=== PATIENT | female | born 1985 | race Caucasian/White ===

== ENCOUNTER 2018-06-30 07:38 | Inpatient (IN) | payer OTHER ==
[2018-07-01] MEDS ORDERED: Promethazine HCl 25 MG/ML VIAL IM PRN ×2 (02:26→13:16)
[2018-07-01] MEDS ORDERED: Butorphanol Tartrate 1 MG/ML VIAL SLOW IVP PRN (02:26)
[2018-07-01] MEDS ORDERED: HYDROcodone/Acetaminophen 5/325 mg Tablet PO PRN ×2 (02:26)
[2018-07-01] MEDS ORDERED: NS / Oxytocin 40 units/1000ml 1,000 ML IV PRN (02:26)
[2018-07-01] MEDS ORDERED: Lidocaine 1% (PF) 30 ML VIAL SC PRN (02:26)
[2018-07-01] MEDS ORDERED: Ibuprofen 800 MG TAB PO PRN (02:26)
[2018-07-01] MEDS ORDERED: Ondansetron PF 4 MG/2 ML Vial IVP PRN ×3 (02:26→22:13)
[2018-07-01] MEDS ORDERED: Docusate 100 MG CAP PO PRN (02:26)
[2018-07-01 05:49] VITALS: BMI 30.1
[2018-07-01 07:11] LABS: Hemoglobin 12.1 g/dL (12.0-16.0); Mean Corpuscular Hemoglobin 31.6 pg (27.0-31.0); Mean Platelet Volume 10.6 fL (7.4-10.4); Platelet Count 144 thou/uL (130-400); RBC Distribution Width 13.4 % (11.5-14.5); Red Blood Cell (RBC) Count 3.81 mill/uL (4.20-5.40); White Blood Cell (WBC) Count 9.9 thou/uL (4.8-10.8)
[2018-07-01 07:28] LABS: ALT (SGPT) 10 U/L (8-55); AST (SGOT) 11 U/L (5-34); Albumin 3.4 g/dL (3.5-5.0); Alkaline Phosphatase 165 U/L (40-150); Anion Gap 15 mmol/L (10-20); BUN (Urea Nitrogen) 8 mg/dL (7.0-18.7); Bilirubin, Total 0.2 mg/dL (0.2-1.2); Calc. Creatinine Clearance 142 mL/min (70-130); Calcium 8.8 mg/dL (7.8-10.44); Carbon Dioxide 19 mmol/L (22-29); Chloride 107 mmol/L (98-107); Estimated GFR-MDRD Greater than 90; Globulin 2.9 g/dL (2.4-3.5); Glucose 76 mg/dL (70-105); Potassium 3.7 mmol/L (3.5-5.1); Protein, Total 6.3 g/dL (6.0-8.3); Sodium 137 mmol/L (136-145)
[2018-07-01] MEDS: NS w/ Oxytocin 10 units 500 ML IV SCH ×2 (07:34→21:03)
[2018-07-01 07:52] LABS: HBSAg Index 0.19 S/CO (0-0.99); Hep B Surf Ag Non-Reactive S/CO (NonReactive)
[2018-07-01 07:53] LABS: Syphilis Antibody Nonreactive (Nonreactive); Syphilis Antibody Index 0.03 S/CO (<1.00 Non-Reactive)
[2018-07-01] MEDS ORDERED: Bupivacaine/Epinephrine 0.25% 30 ML VIAL ONE (11:11)
[2018-07-01] MEDS ORDERED: Fentanyl 4 mcg/Bup 0.1% Cadd 100 ML ONE ×2 (12:42→19:00)
[2018-07-01] MEDS ORDERED: Lidocaine 1.5% w/Epi 1:200K 30 ML VIAL (Epid Use) ONE (12:44)
[2018-07-01] MEDS: Lactated Ringer's 1,000 ML IV SCH ×3 (13:15→21:04)
[2018-07-01] MEDS ORDERED: ePHEDrine/0.9% NaCl/PF SYRINGE 50 mg/10 ml SLOW IVP PRN (13:16)
[2018-07-01] MEDS ORDERED: Eucerin (Mineral Oil/Petrolatum,White) 30 gm Jar TOP PRN (13:16)
[2018-07-01] MEDS ORDERED: Lactated Ringer's 500 ML IV PRN (13:16)
[2018-07-01] MEDS ORDERED: diphenhydrAMINE 50 MG/ML VIAL IVP PRN (13:16)
[2018-07-01] MEDS ORDERED: Acetaminophen 325 MG TAB PO PRN (13:16)
[2018-07-01] MEDS ORDERED: Naloxone HCl 0.4 mg/ml Vial IVP PRN ×2 (13:16)
[2018-07-01] MEDS ORDERED: Fentanyl 4 mcg/Bupivacaine 0.1% Cassette 100 ML EPIDURAL SCH (13:30)
[2018-07-01] MEDS ORDERED: Communication Order-Pharmacy FS SCH (13:30)
[2018-07-01] MEDS ORDERED: Adacel (T-DAP) 0.5 ML SYRINGE IM ONE (22:13)
[2018-07-01] MEDS ORDERED: Lanolin Ointment 7 GM TUBE TOP PRN (22:13)
[2018-07-01] MEDS ORDERED: Benzocaine/Menthol 20-0.5% 60 ML CAN TOP PRN (22:13)
[2018-07-01] MEDS ORDERED: Milk Of Magnesia 30 ML UDCUP PO PRN (22:13)
[2018-07-01] MEDS ORDERED: Bisacodyl 10 MG SUPP PR PRN (22:13)
[2018-07-01] MEDS ORDERED: NS / Oxytocin 40 units/1000ml 1,000 ML IV SCH (22:15)
[2018-07-01] MEDS ORDERED: NIFEdipine XL 30 MG TAB PO SCH (23:15)
[2018-07-02] MEDS ORDERED: HYDROcodone/Acetaminophen 5/325 mg Tablet PO PRN ×2 (02:26)
[2018-07-02] MEDS: Ibuprofen 800 MG TAB PO SCH ×3 (05:22→20:52)
[2018-07-02] MEDS ORDERED: Ibuprofen 800 MG TAB PO SCH (06:00)
[2018-07-02] MEDS ORDERED: Sodium Chloride 0.9% 10 ML ONE (08:46)
[2018-07-02] MEDS: NIFEdipine XL 30 MG TAB PO SCH (09:36)
[2018-07-02] MEDS: Prenatal Vitamin 1 TAB PO SCH (09:36)
[2018-07-02] MEDS: Docusate Calcium (SURFAK) 240 MG CAP PO SCH ×2 (09:36→20:52)
[2018-07-02] MEDS: Ferrous Sulfate 325 MG TAB PO SCH ×2 (09:58→16:50)
[2018-07-03] MEDS: Ibuprofen 800 MG TAB PO SCH ×2 (05:21→14:07)
[2018-07-03 07:55] VITALS: TEMP 97.8
[2018-07-03] MEDS: Ferrous Sulfate 325 MG TAB PO SCH (09:09)
[2018-07-03] MEDS: NIFEdipine XL 30 MG TAB PO SCH (09:10)
[2018-07-03] MEDS: Docusate Calcium (SURFAK) 240 MG CAP PO SCH (09:10)
[2018-07-03] MEDS: Prenatal Vitamin 1 TAB PO SCH (09:10)
[2018-07-03 11:50] VITALS: BP 137/81
== END 2018-07-03 16:31 | disposition home or self-care (01) | DRG 807 ==
LOC: L&D 07-01 05:17 → 3SW 07-02 01:34
PROVIDERS: ADMIT Obstetrics & Gynecology; ATTEND Obstetrics & Gynecology
PROC: 10E0XZZ Delivery of Products of Conception, External Approach (ICD-10-PCS; principal; 2018-07-01)
PROC: 10907ZC Drainage of Amniotic Fluid, Therapeutic from Products of Conception, Via Natural or Artificial Opening (ICD-10-PCS; 2018-07-01)
PROC: 3E033VJ Introduction of Other Hormone into Peripheral Vein, Percutaneous Approach (ICD-10-PCS; 2018-07-01)
PROC: 0HQ9XZZ Repair Perineum Skin, External Approach (ICD-10-PCS; 2018-07-01)
DX: O48.0 Post-term pregnancy (principal); Z37.0 Single live birth; O99.62 Diseases of the digestive system complicating childbirth; K21.9 Gastro-esophageal reflux disease without esophagitis; O70.0 First degree perineal laceration during delivery; Z87.891 Personal history of nicotine dependence; Z86.19 Personal history of other infectious and parasitic diseases; Z3A.40 40 weeks gestation of pregnancy
CPT/HCPCS: 51702; 80053; 85027; 86780; 86850; 86900; 86901; 87340; 90715